=== PATIENT | male | born 1985 | race Caucasian/White ===

== ENCOUNTER 2017-04-19 02:25 | Emergency (ER) | payer OTHER ==
[2017-04-19 02:36] VITALS: BP 145/77; PULSE 91; RESP 20; TEMP 98.4
[2017-04-19] MEDS ORDERED: IBUPROFEN 800 MG TAB PO STA (02:47)
--- NOTE | 2017-04-19 03:40 | XR ---
EXAM: XR Right Wrist Complete, 3 or More Views CLINICAL HISTORY: Reason: Pain TECHNIQUE: Frontal, lateral and oblique views of the right wrist. COMPARISON: No relevant prior studies available. FINDINGS: Bones/joints: No acute fracture. No dislocation. Smooth contour deformity of the fifth metacarpal on the frontal view may be the result of prior injury. Soft tissues: Surgical clips or small metallic pins are seen within the soft tissues adjacent to the distal radial shaft. IMPRESSION: No definite acute fracture is seen, as above. Note, nondisplaced fractures may initially be inapparent and short-term follow-up could be considered as clinically indicated.
--- NOTE | 2017-04-19 03:44 | XR ---
EXAM: XR Right Hip With Pelvis When Performed, 2 or 3 Views CLINICAL HISTORY: Reason: Pain post injury TECHNIQUE: Frontal view of the pelvis with frontal and oblique views of the right hip. COMPARISON: No relevant prior studies available. FINDINGS: Bones/joints: No acute fracture. No dislocation. Indeterminate small sclerotic focus in the right femoral neck, statistically a bone island. Of incidental note is linear bony spicule along the inferior lateral margin of the right lower sacrum/coccyx. Soft tissues: Within normal limits. IMPRESSION: No acute fracture is seen at this time. Note, nondisplaced fractures may initially be inapparent and short-term follow-up could be considered if concern or symptoms persist.
--- NOTE | 2017-04-19 03:47 | XR ---
EXAM: XR Lumbar Spine, 4 or 5 Views CLINICAL HISTORY: Reason: Pain TECHNIQUE: Frontal, lateral and oblique views of the lumbar spine. COMPARISON: No relevant prior studies available. FINDINGS: Vertebrae: Slight anterior loss of height at T12 and L1 which appear chronic along with mild disc space narrowing and minor endplate degenerative changes. No acute fracture is seen. There is degenerative change involving the L5-S1 facet joints, allowing for which there may be L5 pars defect or defects. There is no associated listhesis at L5-S1, with alignment maintained throughout. Disc spaces: See above. Soft tissues: Unremarkable. IMPRESSION: 1. No acute fracture or listhesis. 2. Thoracolumbar and lower lumbar spondylosis with possible L5 spondylolysis.
--- NOTE | 2017-04-19 03:57 | ED ---
General Adult HPI - General Chief complaint: Back Pain/Injury Stated complaint: back and arm pain Time Seen by Provider: 04/19/17 02:40 Source: patient, RN notes reviewed Mode of arrival: ambulatory Limitations: no limitations - History of Present Illness Initial comments: Patient is a 31-year-old male presents emergency room for evaluation of right hip pain and wrist pain. Patient states he was running up a tree in doing back flips around 2 PM this afternoon. Patient states after flipping multiple times he landed on his right buttock and right wrist. Patient states he has a history of right wrist surgery about a year ago with nerve damage. patient states he is having increasing pain in his wrist with increasing numbness and tingling in his fingers. Patient denies any weakness. Patient also states that he pain over his right buttock. Patient denies any back pain. Patient denies saddle anesthesia. Patient denies urine or fecal incontinence. Patient denies paresthesias. Patient denies head trauma, loss of consciousness, neck pain. Patient denies any other injuries during incident. Patient denies taking anything for his symptoms. - Related Data Previous Rx's Medication Instructions Recorded Ibuprofen [Motrin] 600 mg PO Q6HR PRN #20 tab 04/19/17 Allergies Allergy/AdvReac Type Severity Reaction Status Date / Time No Known Allergies Allergy Verified 04/19/17 02:35 Review of Systems ROS Statement: Those systems with pertinent positive or pertinent negative responses have been documented in the HPI. ROS Other: All systems not noted in ROS Statement are negative. Past Medical History Past Medical History: No Reported History History of Any Multi-Drug Resistant Organisms: None Reported Additional Past Surgical History / Comment(s): right femur open reduction. right hand. reconstructive surgery on forehead. Past Psychological History: No Psychological Hx Reported Smoking Status: Current every day smoker Past Alcohol Use History: None Reported Past Drug Use History: None Reported General Exam - General Exam Comments Initial Comments: sitting in exam room, no acute distress. Limitations: no limitations General appearance: alert, in no apparent distress Head exam: Present: atraumatic, normocephalic, normal inspection Eye exam: Present: normal appearance ENT exam: Present: normal exam Neck exam: Present: normal inspection Respiratory exam: Present: normal lung sounds bilaterally. Absent: respiratory distress Cardiovascular Exam: Present: regular rate, normal rhythm, normal heart sounds Right Forearm Wrist exam: Present: normal inspection, full ROM. Absent: tenderness Hand Wrist exam: Present: normal inspection, full ROM. Absent: tenderness Neuro motor exam: Present: wrist extension intact, thumb opposition intact, thumb IP flexion intact, thumb adduction intact, fingers 2-5 abduction intact Vascular: Present: normal capillary refill (capillary refill less than 2 seconds ), radial pulse (2+), ulnar pulse (2+) Right Hip exam: Present: tenderness (tenderness on palpating over right buttock. No swelling or ecchymosis noted.) Neurovascular tendon exam: Present: no vascular compromise. Absent: pulse deficit (2+ dorsal pedal and posterior tibial pulses), abnormal cap refill ( capillary refill less than 2 seconds) Gait: observed and normal Back exam: Present: normal inspection, other (tenderness on palpating over her right side of lumbosacral spine). Absent: vertebral tenderness Neurological exam: Present: alert, oriented X3, CN II-XII intact, normal gait Psychiatric exam: Present: normal affect, normal mood Skin exam: Present: warm, dry, intact, normal color. Absent: rash Course Vital Signs 04/19/17 02:30 Temperature 98.4 F Pulse Rate 91 Respiratory 20 Rate Blood Pressure 145/77 O2 Sat by Pulse 100 Oximetry Medical Decision Making - Medical Decision Making Patient is a 31-year-old male since emergency room for evaluation of right hip and right wrist pain. X-ray show no acute findings. Patient be sent home with ibuprofen and advised to follow-up with primary care provider if symptoms are not improving. Patient states he understands everything that was discussed with him. Return parameters discussed. Case discussed with Dr. Montoya. - Radiology Data Radiology results: report reviewed, image reviewed Disposition Clinical Impression: Contusion of right hip, Right wrist sprain Disposition: HOME SELF-CARE Condition: Good Instructions: Wrist Sprain (ED), Hip Contusion (ED) Additional Instructions: Ice on and off for 10-15 minutes for the next 24-48 hours. Tylenol or Motrin as needed for pain. Please follow-up with primary care provider in 7-10 days if symptoms are not improving. If new symptoms develop or symptoms worsen, please return to the ER. Prescriptions: Ibuprofen [Motrin] 600 mg PO Q6HR PRN #20 tab PRN Reason: Pain Referrals: Haylee Rosenthal MD [STAFF PHYSICIAN] - 1-2 days Time of Disposition: 04:07
== END 2017-04-19 04:19 | disposition home or self-care (01) ==
LOC: EC 02:25
DX: S63.501A Unspecified sprain of right wrist, initial encounter (principal); S70.01XA Contusion of right hip, initial encounter; F17.200 Nicotine dependence, unspecified, uncomplicated; X58.XXXA Exposure to other specified factors, initial encounter
CPT/HCPCS: 72110; 73502; 99283

== ENCOUNTER 2018-01-12 21:58 | Emergency (ER) | payer OTHER ==
[2018-01-12 22:06] VITALS: RESP 18
--- NOTE | 2018-01-12 22:29 | XR ---
History knee pain. Comparison none. Technique 3 views. FINDINGS: I see no fracture nor dislocation. Joint spaces are fairly normal. There is no sign of a joint effusi on. CONCLUSION: Normal right knee.
--- NOTE | 2018-01-12 22:42 | ED ---
General Adult HPI - General Chief complaint: Extremity Injury, Lower Stated complaint: rt knee injury Time Seen by Provider: 01/12/18 22:23 Source: patient, RN notes reviewed Mode of arrival: ambulatory Limitations: no limitations - History of Present Illness Initial comments: 32-year-old male presents to the emergency department for a chief complaint of right knee pain x 10 hours. Patient states that earlier today he kicked down a fence and sprinted 10 houses in order to catch somebody that he was catching. Patient states he then walked to the emergency department later in the day. Patient denies any tenderness in the calf. Patient denies any pain behind the knee. Patient states she had surgery on that knee when he was 3 years old. Patient denies any pain in the foot or ankle or hip joint. Patient has no other complaints at this time including cough, congestion, shortness of breath, chest pain, abdominal pain, urinary symptoms, headache, nausea or vomiting. - Related Data Previous Rx's Medication Instructions Recorded Ibuprofen [Motrin] 600 mg PO Q8HR PRN #20 tab 01/12/18 Allergies Allergy/AdvReac Type Severity Reaction Status Date / Time No Known Allergies Allergy Verified 01/12/18 22:06 Review of Systems ROS Statement: Those systems with pertinent positive or pertinent negative responses have been documented in the HPI. ROS Other: All systems not noted in ROS Statement are negative. Past Medical History Past Medical History: No Reported History History of Any Multi-Drug Resistant Organisms: None Reported Past Surgical History: No Surgical Hx Reported Additional Past Surgical History / Comment(s): right femur open reduction. right hand. reconstructive surgery on forehead. Past Psychological History: No Psychological Hx Reported Smoking Status: Current every day smoker Past Alcohol Use History: None Reported Past Drug Use History: None Reported General Exam Limitations: no limitations General appearance: alert, in no apparent distress Respiratory exam: Present: normal lung sounds bilaterally. Absent: respiratory distress, wheezes, rales, rhonchi, stridor Cardiovascular Exam: Present: regular rate, normal rhythm, normal heart sounds. Absent: systolic murmur, diastolic murmur, rubs, gallop, clicks Extremities exam: Present: tenderness (Patient states she has some lateral and inferior knee tenderness. No tenderness on the patella or medial superior to the knee.), normal capillary refill (Refill less than 2 seconds in the right lower extremity. Pedal pulse 2+ in the right lower extremity.). Absent: full ROM (Patient has some limited flexion of the right knee. Full extension.), joint swelling (No swelling or ecchymosis noted of the right knee.), calf tenderness (No tenderness behind the calf. Negative Homans sign.) Course Vital Signs 01/12/18 01/12/18 22:03 22:43 Temperature 100.0 F H 100.5 F H Pulse Rate 120 H 98 Respiratory 18 18 Rate Blood Pressure 181/89 134/75 O2 Sat by Pulse 98 96 Oximetry Medical Decision Making - Medical Decision Making 32-year-old male presents to the emergency department for chief complaint of right knee pain 10 hours. Patient injured it when taking down a fence earlier today. Patient is able to walk on it as he walked to the emergency Department today. On exam patient admits to mild lateral and inferior tenderness of the right knee. Slightly limited flexion of the right knee. Neurovascular intact and sensation intact in the right lower extremity. X-ray was ordered which shows no acute fractures or dislocations. Nikolai wrap was applied to the right knee. He was educated to rest, ice, and elevate the right knee. He is to follow-up with orthopedics if symptoms do not resolve. He is to return to the emergency department if he has any worsening symptoms. Disposition Clinical Impression: Knee pain, right Disposition: HOME SELF-CARE Condition: Good Instructions: Knee Pain (ED) Additional Instructions: Please take Motrin or Tylenol for pain relief. Please rest, ice, and elevate the right knee. Keep it wrapped if that is helping with pain. Follow-up with orthopedics if symptoms do not resolve. Otherwise return to the emergency department if you have any worsening symptoms. Prescriptions: Ibuprofen [Motrin] 600 mg PO Q8HR PRN #20 tab PRN Reason: Pain Is patient prescribed a controlled substance at d/c from ED?: No Referrals: None,Stated [Primary Care Provider] - 1-2 days Elizabeth Rosenthal DO [Doctor of Osteopathic Medicine] - 1-2 days Time of Disposition: 22:41
[2018-01-12 22:43] VITALS: BP 134/75; PULSE 98; TEMP 100.5
== END 2018-01-12 22:49 | disposition home or self-care (01) ==
LOC: EC 21:58
DX: M25.561 Pain in right knee (principal); F17.200 Nicotine dependence, unspecified, uncomplicated; Z98.890 Other specified postprocedural states; W22.8XXA Striking against or struck by other objects, initial encounter
CPT/HCPCS: 99283